=== PATIENT | male | born 1960 | race African-American/Black ===

== ENCOUNTER 2017-06-15 14:57 | Inpatient (IN) | payer OTHER ==
[2017-06-15 16:17] VITALS: BMI 23.6
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
[2017-06-15] MEDS ORDERED: NICOTINE POLACRILEX 2 MG GUM BUC PRN (16:59)
[2017-06-15] MEDS ORDERED: P-EPHED 60MG/TRIPROLIDI 2.5MG TABLET PO PRN (16:59)
[2017-06-15] MEDS ORDERED: MENTHOL/PHENOL 1 EACH UD MM PRN (16:59)
[2017-06-15] MEDS ORDERED: MAGNESIUM CITRATE 300 ML BOTTLE PO PRN (16:59)
[2017-06-15] MEDS ORDERED: MAGNESIUM HYDROX 2400MG/30ML ORAL SUSPENSION 30 ML CUP PO PRN (16:59)
[2017-06-15] MEDS ORDERED: diphenhydrAMINE HCL 50 MG CAPSULE PO PRN (16:59)
[2017-06-15] MEDS ORDERED: hydrOXYzine PAMOATE 50 MG CAPSULE (FP) PO PRN (16:59)
[2017-06-15] MEDS ORDERED: LOPERAMIDE HCL 2 MG CAPSULE PO PRN (16:59)
[2017-06-15] MEDS ORDERED: guaiFENesin/D-METHORPHAN HB 10 ML UNIT-DOSE CUPS PO PRN (16:59)
[2017-06-15] MEDS ORDERED: TUBERCULIN PPD 5 TU/0.1ML VIAL ID ONE (20:40)
[2017-06-15] MEDS: THIAMINE HCL 100 MG TABLET (FP) PO SCH (22:07)
[2017-06-15] MEDS: NICOTINE 14 MG/24 HOURS TOPICAL PATCH TD SCH (22:11)
[2017-06-15 22:28] LABS: URINE APPEARANCE CLEAR; URINE BILIRUBIN NEGATIVE (NEGATIVE); URINE BLOOD 1+ (NEGATIVE); URINE COLOR LTYELLOW; URINE GLUCOSE (UA) NEGATIVE (NEGATIVE); URINE KETONE NEGATIVE (NEGATIVE); URINE LEUK ESTERASE NEGATIVE (NEGATIVE); URINE NITRITE NEGATIVE (NEGATIVE); URINE PROTEIN NEGATIVE (NEGATIVE); URINE UROBILINOGEN NEGATIVE mg/dL (0.2-1.0)
[2017-06-15 22:56] LABS: URINE MUCUS RARE; URINE RBC 2 /hpf (0-3); URINE WBC <1 /hpf (3-5)
[2017-06-16] MEDS: IBUPROFEN 400 MG TABLET (FP) PO PRN ×2 (08:18→21:15)
[2017-06-16 09:45] LABS: MCH 31.5 pg (25.7-33.7); MEAN CELL VOLUME 92.6 fl (80-96); MEAN PLT VOLUME 7.9 fl (7.5-11.1); PLATELET COUNT 325 K/MM3 (134-434); RDW 13.1 % (11.9-15.9); WHITE BLOOD COUNT 4.3 K/mm3 (4.0-10.0)
[2017-06-16] MEDS: PRENATAL VITAMINS W/ FOLIC ACID TABLET (FP) PO SCH (10:03)
[2017-06-16] MEDS: NICOTINE 14 MG/24 HOURS TOPICAL PATCH TD SCH (10:03)
[2017-06-16] MEDS: ACETAMINOPHEN 325 MG TABLET (FP) PO PRN (10:04)
--- NOTE | 2017-06-16 10:47 | EKG ---
Test Reason : Blood Pressure : / mmHG Vent. Rate : 072 BPM Atrial Rate : 072 BPM P-R Int : 192 ms QRS Dur : 082 ms QT Int : 382 ms P-R-T Axes : 071 040 065 degrees QTc Int : 418 ms NORMAL SINUS RHYTHM NORMAL ECG NO PREVIOUS ECGS AVAILABLE Confirmed by IBETH JONES, LUCERO ([id number]) on 06/16/2017 10:47:12 AM Referred By: Confirmed By:LUCERO CRISTINA MD
[2017-06-16] MEDS: DIVALPROEX SODIUM 500 MG TABLET E.C. PO SCH ×2 (12:11→21:14)
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
[2017-06-16 14:06] LABS: ALBUMIN 3.3 g/dl (3.4-5.0); ALK PHOS 69 U/L (45-117); ANION GAP 6 (8-16); BILIRUBIN,TOTAL 0.7 mg/dL (0.2-1.0); CALCIUM 8.8 mg/dL (8.5-10.1); CO2 30 mmol/L (21-32); CREATININE 1.1 mg/dL (0.7-1.3); GLUCOSE,RANDOM 130 mg/dL (74-106); SGOT/AST 30 U/L (15-37); SGPT/ALT 26 U/L (12-78); TOT PROT 7.2 g/dl (6.4-8.2)
[2017-06-16] MEDS: THIAMINE HCL 100 MG TABLET (FP) PO SCH (21:14)
[2017-06-16] MEDS: QUEtiapine FUMARATE 200 MG TABLET PO SCH (21:14)
[2017-06-17] MEDS: DIVALPROEX SODIUM 500 MG TABLET E.C. PO SCH ×2 (10:02→21:14)
[2017-06-17] MEDS: NICOTINE 14 MG/24 HOURS TOPICAL PATCH TD SCH (10:02)
[2017-06-17] MEDS: IBUPROFEN 400 MG TABLET (FP) PO PRN (10:03)
[2017-06-17] MEDS: PRENATAL VITAMINS W/ FOLIC ACID TABLET (FP) PO SCH (10:03)
[2017-06-17] MEDS: IBUPROFEN 600 MG TABLET (FP) PO PRN (20:21)
[2017-06-17] MEDS: THIAMINE HCL 100 MG TABLET (FP) PO SCH (21:14)
[2017-06-17] MEDS: QUEtiapine FUMARATE 200 MG TABLET PO SCH (21:14)
[2017-06-18] MEDS: NICOTINE 14 MG/24 HOURS TOPICAL PATCH TD SCH (09:48)
[2017-06-18] MEDS: DIVALPROEX SODIUM 500 MG TABLET E.C. PO SCH ×2 (09:48→21:11)
[2017-06-18] MEDS: PRENATAL VITAMINS W/ FOLIC ACID TABLET (FP) PO SCH (09:48)
[2017-06-18] MEDS: IBUPROFEN 600 MG TABLET (FP) PO PRN ×2 (09:49→21:12)
[2017-06-18] MEDS: THIAMINE HCL 100 MG TABLET (FP) PO SCH (21:11)
[2017-06-18] MEDS: QUEtiapine FUMARATE 200 MG TABLET PO SCH (21:11)
[2017-06-19] MEDS: PRENATAL VITAMINS W/ FOLIC ACID TABLET (FP) PO SCH (09:56)
[2017-06-19] MEDS: DIVALPROEX SODIUM 500 MG TABLET E.C. PO SCH ×2 (09:56→21:16)
[2017-06-19] MEDS: NICOTINE 14 MG/24 HOURS TOPICAL PATCH TD SCH (09:57)
[2017-06-19] MEDS: IBUPROFEN 600 MG TABLET (FP) PO PRN ×2 (09:57→21:17)
[2017-06-19] MEDS: THIAMINE HCL 100 MG TABLET (FP) PO SCH (21:16)
[2017-06-19] MEDS: QUEtiapine FUMARATE 200 MG TABLET PO SCH (21:16)
[2017-06-20] MEDS: DIVALPROEX SODIUM 500 MG TABLET E.C. PO SCH ×2 (09:45→21:16)
[2017-06-20] MEDS: PRENATAL VITAMINS W/ FOLIC ACID TABLET (FP) PO SCH (09:45)
[2017-06-20] MEDS: NICOTINE 14 MG/24 HOURS TOPICAL PATCH TD SCH (09:45)
[2017-06-20] MEDS: IBUPROFEN 600 MG TABLET (FP) PO PRN ×2 (09:46→21:17)
[2017-06-20] MEDS: MAG HYDROX/AL HYDROX/SIMETH 30 ML UNIT-DOSE CUP PO PRN (11:33)
[2017-06-20] MEDS: QUEtiapine FUMARATE 200 MG TABLET PO SCH (21:16)
[2017-06-20] MEDS: THIAMINE HCL 100 MG TABLET (FP) PO SCH (21:16)
[2017-06-21] MEDS: NICOTINE 14 MG/24 HOURS TOPICAL PATCH TD SCH (10:10)
[2017-06-21] MEDS: IBUPROFEN 600 MG TABLET (FP) PO PRN (10:10)
[2017-06-21] MEDS: PRENATAL VITAMINS W/ FOLIC ACID TABLET (FP) PO SCH (10:10)
[2017-06-21] MEDS: DIVALPROEX SODIUM 500 MG TABLET E.C. PO SCH ×2 (10:10→21:12)
[2017-06-21] MEDS: MAG HYDROX/AL HYDROX/SIMETH 30 ML UNIT-DOSE CUP PO PRN (12:26)
--- NOTE | 2017-06-21 14:02 | PN ---
S Progress Note (SOAP) Subjective: patient c/o pain/hernia in left groin. Reports h/o inguinal hernai repair as child. becoming increasingly painful, no relief with ibuprofen Objective: 06/21/17 13:59 Vital Signs - 24 hr 06/21/17 06/21/17 03:30 06:30 Temperature 97.9 F Pulse Rate 79 Respiratory 18 18 Rate Blood Pressure 106/79 Laboratory Tests 06/15/17 06/16/17 06/16/17 21:57 08:50 08:50 WBC 4.3 RBC 4.56 Hgb 14.4 Hct 42.2 MCV 92.6 MCH 31.5 MCHC 34.0 RDW 13.1 Plt Count 325 MPV 7.9 Sodium 141 Potassium 4.5 Chloride 105 Carbon Dioxide 30 Anion Gap 6 L BUN 15 Creatinine 1.1 Creat Clearance w eGFR > 60 Random Glucose 130 H D Calcium 8.8 Total Bilirubin 0.7 D AST 30 D ALT 26 Alkaline Phosphatase 69 Total Protein 7.2 Albumin 3.3 L Urine Color Ltyellow Urine Appearance Clear Urine pH 6.0 Ur Specific [place] 1.020 Urine Protein Negative Urine Glucose (UA) Negative Urine Ketones Negative Urine Blood 1+ H Urine Nitrite Negative Urine Bilirubin Negative Urine Urobilinogen Negative Ur Leukocyte Esterase Negative Urine RBC 2 Urine WBC <1 Urine Mucus Rare RPR Titer 06/16/17 08:50 WBC RBC Hgb Hct MCV MCH MCHC RDW Plt Count MPV Sodium Potassium Chloride Carbon Dioxide Anion Gap BUN Creatinine Creat Clearance w eGFR Random Glucose Calcium Total Bilirubin AST ALT Alkaline Phosphatase Total Protein Albumin Urine Color Urine Appearance Urine pH Ur Specific [place] Urine Protein Urine Glucose (UA) Urine Ketones Urine Blood Urine Nitrite Urine Bilirubin Urine Urobilinogen Ur Leukocyte Esterase Urine RBC Urine WBC Urine Mucus RPR Titer Nonreactive Assessment: 06/21/17 13:59 tender herni left inguinal region on palpation moving into scrotum???, afebrile , normal bloodwork Plan: r/o incerated Left ing hernia in HIV+ male with h/o hernia in past. Ed notified d/w Kasey rubio NP. Patient and nursing informed he will be sent to ED.
[2017-06-21] MEDS: PANTOPRAZOLE 40 MG TABLET (FP) PO SCH (15:30)
[2017-06-21] MEDS: NAPROXEN 500 MG TABLET (FP) PO SCH ×2 (15:31→21:12)
[2017-06-21] MEDS: QUEtiapine FUMARATE 200 MG TABLET PO SCH (21:12)
[2017-06-21] MEDS: THIAMINE HCL 100 MG TABLET (FP) PO SCH (21:12)
[2017-06-22] MEDS: ACETAMINOPHEN 325 MG TABLET (FP) PO PRN (06:30)
[2017-06-22 06:54] VITALS: BP 126/79; PULSE 81; TEMP 97.8
[2017-06-22] MEDS: NAPROXEN 500 MG TABLET (FP) PO SCH (09:50)
[2017-06-22] MEDS: DIVALPROEX SODIUM 500 MG TABLET E.C. PO SCH (09:50)
[2017-06-22] MEDS: PANTOPRAZOLE 40 MG TABLET (FP) PO SCH (09:50)
[2017-06-22] MEDS: PRENATAL VITAMINS W/ FOLIC ACID TABLET (FP) PO SCH (09:50)
[2017-06-22] MEDS: NICOTINE 14 MG/24 HOURS TOPICAL PATCH TD SCH (09:51)
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
== END 2017-06-22 11:00 | disposition home or self-care (01) | DRG 772 ==
LOC: YASAS 14:57 → Y5N 18:27
PROVIDERS: ADMIT Psychiatry & Neurology Psychiatry; ATTEND Psychiatry & Neurology Psychiatry
PROC: HZ42ZZZ Group Counseling for Substance Abuse Treatment, Cognitive-Behavioral (ICD-10-PCS; principal; 2017-06-15)
DX: F14.20 Cocaine dependence, uncomplicated (principal); F12.20 Cannabis dependence, uncomplicated; F17.210 Nicotine dependence, cigarettes, uncomplicated; F31.63 Bipolar disorder, current episode mixed, severe, without psychotic features; F43.10 Post-traumatic stress disorder, unspecified; F60.3 Borderline personality disorder; Z21 Asymptomatic human immunodeficiency virus [HIV] infection status
CPT/HCPCS: 36415; 80053; 81003; 81015; 85027; 86593; 93005; 93010